=== PATIENT | male | born 1990 | race Caucasian/White ===

== ENCOUNTER → 2024-08-08 | Outpatient (CLI) | payer OTHER ==
[~2024-08-08] MED LIST: CLARITIN10 MG PO; PROVENTIL0.09 MG/AC IH; ZITHROMAX Z PA250 MG PO
== END | disposition home or self-care (01) ==
LOC: CT 08-01 08:00 → US 09:13 → CT 10:00
PROVIDERS: ATTEND Urology
DX: K76.0 Fatty (change of) liver, not elsewhere classified (principal); N26.1 Atrophy of kidney (terminal); N50.0 Atrophy of testis; R39.15 Urgency of urination